=== PATIENT | male | born 1960 | race Caucasian/White ===

== ENCOUNTER → 2019-07-06 | Outpatient (CLI) | payer BC ==
[2019-07-06 17:07] LABS: HCT 47.1 % (39.0-53.0); HGB 16.1 gm/dL (13.0-17.5); MCH 34.9 pg (25.0-35.0); MCHC 34.1 g/dL (31.0-37.0); MCV 102.3 fL (80.0-100.0); Mean Platelet Volume 6.6; Platelet Count 252 k/uL (150-450); RBC 4.61 m/uL (4.30-5.90); RDW 12.2 % (11.5-15.5); WBC 7.9 k/uL (3.8-10.6)
[2019-07-06 19:06] LABS: Erythrocyte Sedimentation Rate 7 mm/hr (0-15)
== END | disposition home or self-care (01) ==
LOC: LABWHC1 15:49
PROVIDERS: ATTEND Orthopaedic Surgery
DX: M25.571 Pain in right ankle and joints of right foot (principal)
CPT/HCPCS: 36415; 85027; 85652; 86140